=== PATIENT | female | born 1945 | race Caucasian/White ===

== ENCOUNTER 2024-07-16 11:26 | Emergency (ER) | payer MEDICARE, MEDICAID ==
[~2024-07-16] VITALS: Ht 154.9 cm; Wt 71.5 kg
[~2024-07-16 11:26] MED LIST: HYDR1TAB PO; LORA0.5T PO
[2024-07-16 11:27] VITALS: TEMP 97.7
[2024-07-16 11:54] LABS: BASOPHILS # (AUTO) 0.1 X10'3 (0-0.2); BASOPHILS % (AUTO) 1.3 % (0-1); EOSINOPHILS # (AUTO) 0.4 X10'3 (0-0.9); EOSINOPHILS % (AUTO) 6.7 % (0-6); HEMATOCRIT 44.2 % (35.0-45.0); HEMOGLOBIN 15.1 g/dl (12.0-16.0); LYMPHOCYTES # (AUTO) 2.2 X10'3 (1.1-4.8); LYMPHOCYTES % (AUTO) 38.5 % (21-51); MEAN CORPUSCULAR HEMOGLOBIN 31.4 PG (27.0-31.0); MEAN CORPUSCULAR HGB CONC 34.1 g/dL (33.0-36.5); MEAN CORPUSCULAR VOLUME 91.9 FL (78-98); MEAN PLATELET VOLUME 7.3 FL (7.4-10.4); MONOCYTES # (AUTO) 0.4 X10'3 (0-0.9); MONOCYTES % (AUTO) 6.4 % (2-12); NEUTROPHILS # (AUTO) 2.7 X10'3 (1.8-7.7); NEUTROPHILS % (AUTO) 47.1 % (42-75); PLATELET COUNT 305 X10'3 (140-440); RED BLOOD COUNT 4.81 X10'6 (4.20-5.60); RED CELL DISTRIBUTION WIDTH 13.6 % (11.5-14.5); WHITE BLOOD COUNT 5.8 X10'3 (4.5-11.0)
[2024-07-16 12:13] LABS: ALANINE AMINOTRANSFERASE 20 U/L (12-78); ALBUMIN 3.8 G/DL (3.4-5.0); ALBUMIN/GLOBULIN RATIO 1.2 (1.1-1.5); ALKALINE PHOSPHATASE 102 IU/L (46-116); ANION GAP 8 (8-16); ASPARTATE AMINO TRANSFERASE 18 U/L (10-37); BILIRUBIN,TOTAL 0.4 MG/DL (0.1-1.0); BLOOD UREA NITROGEN 21 MG/DL (7-18); BUN/CREATININE RATIO 25.6 (10.0-20.0); CHLORIDE 108 MMOL/L (99-107); CREATININE 0.82 MG/DL (0.40-0.90); GLUCOSE 108 MG/DL (70-104); LIPASE 26 U/L (16-77); PRO BRAIN NATRIURETIC PEPTIDE 54 PG/ML (0-450); SODIUM 143 MMOL/L (135-145); TOTAL CARBON DIOXIDE 26.9 MMOL/L (24-32); TOTAL PROTEIN 7.1 G/DL (6.4-8.2); eCRCL 43 ML/MIN; eGFR 68 ML/MIN
[2024-07-16 12:42] VITALS: BP 155/80
[2024-07-16] MEDS ORDERED: PANT20TA18 PO (13:55)
[2024-07-16 14:15] LABS: BILIRUBIN,URINE NEGATIVE (Neg); COLOR,URINE YELLOW (Yellow); GLUCOSE, URINE NEGATIVE (Neg); KETONES,URINE TRACE mg/dl (Neg); LEUKOCYTE ESTERASE ,URINE NEGATIVE (Neg); NITRITES, URINE NEGATIVE (Neg); OCCULT BLOOD,URINE NEGATIVE (Neg); PROTEIN,URINE NEGATIVE (Neg); UROBILINOGEN,URINE 0.2 E.U/dL (0.2-1.0)
[2024-07-16] MEDS: mag hydrox/Alum hydrox/simeth 30ml oral suspension PO ONE (14:19)
[2024-07-16] MEDS: LIDOcaine 2% Viscous 15ml cup MM PRN (14:19)
[2024-07-16 14:21] LABS: UA COLLECTION TYPE CLN CATCH MIDSTREAM
[2024-07-16 14:22] LABS: CLARITY,URINE SLIGHTLY CLOUDY (Clear)
[2024-07-16 14:23] LABS: BACTERIA,URINE 3+ /HPF (Neg); MUCUS STRANDS MODERATE /LPF (Neg); SQUAMOUS EPITHELIAL CELL,UR FEW /LPF (FEW)
[2024-07-16] MEDS ORDERED: CEPH-585 PO (14:26)
[2024-07-16 14:32] VITALS: PULSE 67; RESP 11; O2SAT 98
== END 2024-07-16 14:52 | disposition home or self-care (01) ==
LOC: ER 11:26
DX: N39.0 Urinary tract infection, site not specified (principal); K52.9 Noninfective gastroenteritis and colitis, unspecified; M19.90 Unspecified osteoarthritis, unspecified site; G89.29 Other chronic pain; M54.9 Dorsalgia, unspecified; F41.9 Anxiety disorder, unspecified; F32.A Depression, unspecified; Z90.49 Acquired absence of other specified parts of digestive tract; Z90.710 Acquired absence of both cervix and uterus; Z88.8 Allergy status to other drugs, medicaments and biological substances; Z91.011 Allergy to milk products; Z79.899 Other long term (current) drug therapy
CPT/HCPCS: 36415; 71045; 76700; 80053; 81001; 83690; 83880; 84484; 85025; 87077; 87088; 87186; 93005; 99285

== ENCOUNTER 2025-02-01 11:20 | Emergency (ER) | payer MEDICARE, MEDICAID ==
[~2025-02-01] VITALS: Ht 154.9 cm; Wt 73.3 kg
[~2025-02-01 11:20] MED LIST changes: +CEPH-585 PO; +PANT20TA18 PO
--- NOTE | 2025-02-01 13:06 | RADIOLOGY REPORT ---
Indication: KNEE PAIN Technique: DI KNEE, COMP 4 VW MINKNEE CMPT Comparison: None FINDINGS/IMPRESSION: No radiographic evidence for acute fracture or dislocation. Moderate tricompartmental degenerative joint disease. No significant joint effusion.
[2025-02-01 13:46] VITALS: BP 130/68; PULSE 74; RESP 16; O2SAT 96
--- NOTE | 2025-02-01 13:56 | Physician Documentation ---
History of Present Illness ~ Chief Complaint: Knee Pain Stated Complaint: FALL R KNEE PAIN NO THINNERS Time Seen by MD: 13:45 Primary Medical Doctor: DEION VICTOR Patient is seen today with complaints of right-sided knee pain after she accidentally fell down the stairs earlier this morning. Patient states that she does have chronic pain of her knees but now she has significant anterior pain of her right knee and wants an x-ray. She is ambulatory but has no other concern or complaint at this time. Tetanus witin 5 years: Yes Medication Reconciliation Allergies: Coded Allergies: meperidine (Verified Allergy, Unknown, 02/01/25) milk (Verified Adverse Reaction, Intermediate, nausea, 02/01/25) Scheduled Cephalexin*Monohydrate* (Keflex*), 1 CAP PO QID Pantoprazole Sodium (Protonix), 1 TAB PO DAILY Scheduled PRN Hydrocodone/Acetaminophen (Vicodin 5-500 Tablet), 1 TAB PO Q4H PRN for pain, (Reported) Lorazepam* (Ativan*), 0.5 MG PO TID PRN for anxiety Past Medical History Past Medical History: Chronic Pain, Osteoarthritis, Anxiety, Depression Past Surgical History: appendectomy, hysterectomy, orthopedic surgeries Other Past Family History: NONCONTRIBUTORY Alcohol Use: None Drug Use: none Lives with: Spouse Lives In: Home Occupation: retired Review of Systems Constitutional: Denies: chills, fever, weakness Eyes: Denies: pain, blurred vision ENT: Denies: ear pain, nose pain, throat pain, mouth pain Respiratory: Denies: cough, shortness of breath Cardiovascular: Denies: chest pain, palpitations Gastrointestinal: Denies: abdominal pain, nausea, vomiting Genitourinary: Denies: burning, dysuria Female Genitalia: Denies: vaginal discharge, pelvic pain Neurological: Denies: headache, dizziness Musculoskeletal: Denies: pain, swelling Integumentary: Denies: rash, lesions Allergic/Immunologic: Denies: hives, itching Hematologic/Lymphatic: Denies: no symptoms reported Psychiatric: Denies: depression, anxiety Physical Exam Vital Signs: Temperature: 97.3, Source: Temporal, Heart Rate: 74, Respiratory Rate: 16, BP: 130/68, Pulse Oximetry: 96, Weight: 73.300 Oxygen Flow Rate: 0 Physical Exam General: Awake and Alert, no acute distress. HEENT: Conjunctiva pink, Sclera clear, Mucus Membranes moist. Neck: Supple without masses and tenderness. Resp: Unlabored. Lungs clear to auscultation bilaterally. Musculoskeletal: Patient on exam does have a superficial abrasion over the patella of her right knee. Patient has no significant joint effusion or ecchymosis or obvious deformity. Patient is neurovascularly intact distally. Motor function intact distally. Extremities: No cyanosis,clubbing or edema. Skin: Warm and Dry. Progress Results/Orders Results/Orders Vital Signs 02/01/25 02/01/25 11:44 13:46 Temp 97.3 97.3 Pulse 85 74 Resp 16 16 B/P (MAP) 133/64 130/68 (88) Pulse Ox 96 96 O2 Flow Rate 0 EKG/XRAY/CT/US/VASC/MRI Bone/Soft Tissue X-Ray (Ext.) : Additional Comment X-ray of right knee interpreted by myself today shows no sign of acute fracture, tricompartmental joint disease, no osteolytic or blastic lesions. DIAGNOSTIC RADIOLOGY Patient: ALBERTA OLVERA Medical Record: [id number] [facility] : 1945, Age: 79 Sex: Female Location: ER Patient Status: [facility] ER Service Date/Time: 02/01/25/ 1226 Ordering Physician: SHYAM CASTRO MD Exam: KNEE, COMP 4 VW MIN Indication: KNEE PAIN Technique: DI KNEE, COMP 4 VW MINKNEE CMPT Comparison: None FINDINGS/IMPRESSION: No radiographic evidence for acute fracture or dislocation. Moderate tricompartmental degenerative joint disease. No significant joint effusion. Electronically Signed by:DELMA LOUIS MD Date & Time: 02/01/251306 Dictated by: DELMA LOUIS MD Dictation date and time: 02/01/25 2008 Primary Care Provider: NO PRIMARY CARE PROVIDER cc: SHYAM CASTRO MD ~ Medical Decision Making Findings Patient is seen today with complaints of right-sided knee pain after she accidentally fell down the stairs earlier this morning. Patient states that she does have chronic pain of her knees but now she has significant anterior pain of her right knee and wants an x-ray. She is ambulatory but has no other concern or complaint at this time. Patient did have x-ray taken of right knee that showed no sign of acute fracture. Patient will continue nonsteroidal anti-inflammatories and Tylenol as needed for symptomatic relief. Patient will follow up with primary care in 3-5 days if no better as needed sooner for referral to philosophy specialist if needed. Return to ED with any worsening, concerning or changing symptoms. Departure Disposition: 01 HOME / SELF CARE / HOMELESS Impression: Primary Impression: Knee pain Qualified Codes: M25.561 - Pain in right knee Condition: Improved Discharge Instructions: Acute Knee Pain, Adult Additional Instructions: Patient did have x-ray taken of right knee that showed no sign of acute fracture. Patient will continue nonsteroidal anti-inflammatories and Tylenol as needed for symptomatic relief. Patient will follow up with primary care in 3-5 days if no better as needed sooner for referral to philosophy specialist if needed. Return to ED with any worsening, concerning or changing symptoms. Referrals: NO PRIMARY CARE PROVIDER (PCP) Signature Scribe Signature: No scribe Attestation: No scribe JAG MURILLO PAC Feb 01, 2025 13:56
[2025-02-01 14:11] VITALS: TEMP 97.3
== END 2025-02-01 14:17 | disposition home or self-care (01) ==
LOC: ER 11:21
DX: M25.561 Pain in right knee (principal); F41.9 Anxiety disorder, unspecified; F32.A Depression, unspecified; Z88.5 Allergy status to narcotic agent; Z90.49 Acquired absence of other specified parts of digestive tract; Z90.710 Acquired absence of both cervix and uterus; Z91.011 Allergy to milk products; W10.9XXA Fall (on) (from) unspecified stairs and steps, initial encounter; Y93.89 Activity, other specified; Y92.89 Other specified places as the place of occurrence of the external cause; Y99.8 Other external cause status
CPT/HCPCS: 73564; 99283